=== PATIENT | male | born 2000 | race Caucasian/White ===

== ENCOUNTER 2021-08-16 04:28 | Emergency (ER) | payer BC, MEDICAID ==
[2021-08-16] MEDS ORDERED: Ketorolac 15 MG/ML SDV IM ONE (05:08)
[2021-08-16] MEDS ORDERED: Ondansetron 4 MG Tab.DIS PO ONE (05:09)
--- NOTE | 2021-08-16 05:11 | EDM.PDOC ---
ED HPI GENERAL MEDICAL PROBLEM - General Chief Complaint: ENT Problem Stated Complaint: SORE THROAT, RUNNY NOSE, FEVER Time Seen by Provider: 08/16/21 04:50 Source of Information: Reports: Patient History Limitations: Reports: No Limitations - History of Present Illness INITIAL COMMENTS - FREE TEXT/NARRATIVE: There is 20-year-old male with a medical history of of Fragile X syndrome presenting with a chief complaint of sore throat, cough, nausea. Duration of symptoms has been 1 week. Symptoms gradually worsening. Patient reports pain with swallowing and cough that is mildly productive. [id number]-[id number] pain medications seem to be only mildly effective. Patient did receive COVID-19 vaccination approximately 9 months ago. He has no known sick contacts. He denies any difficulty breathing, denies any chest pain, denies any shortness of breath. Treatments CIVIL CELEBRANT: Reports: NSAIDS Upper Throat Pain Score (Numeric/FACES): 7 - Related Data Allergies Allergy/AdvReac Type Severity Reaction Status Date / Time No Known Allergies Allergy Verified 08/16/21 04:53 Home Meds: Home Meds Sertraline [Zoloft] 100 mg PO DAILY 08/16/21 [History] guanFACINE 1 mg PO DAILY 08/16/21 [History] Past Medical History - Past Health History Medical/Surgical History: Denies Medical/Surgical History Social & Family History - Tobacco Use Tobacco Use Status *Q: Never Tobacco User Second Hand Smoke Exposure: No - Caffeine Use Caffeine Use: Reports: None - Recreational Drug Use Recreational Drug Use: No ED ROS ENT - Review of Systems Review Of Systems: See Below Free Text/Narrative/Comment: In addition to that documented in the HPI above, the additional ROS was obtained: Constitutional: Denies fevers or chills Eyes: Denies vision changes ENMT: Per HPI CV: Denies chest pain Resp: Denies SOB GI: Denies vomiting or diarrhea : Denies painful urination MSK: Denies recent trauma Skin: Denies new rashes Neuro: Denies new numbness or tingling or weakness Endocrine: Denies unexpected weight loss Heme: Denies bleeding disorders ED EXAM, ENT - Physical Exam Exam: See Below Text/Narrative:: I have reviewed the triage vital signs Const: Well nourished, well developed, appears stated age Eyes: Pupils Equal and reactive to light bilaterally, no conjunctival injection HENT: No signs of trauma or swelling, Neck supple without meningismus. Voice is normal. Uvula midline. No tonsillar swelling. CV: Regular Rate Rhythm, Warm, well-perfused extremities RESP: Unlabored respiratory effort GI: soft, non-tender, non-distended, no masses MSK: No gross deformities appreciated Skin: Warm, dry. No rashes Neuro: Alert, associate dentist II-XII grossly intact. Sensation and motor function of extremities grossly intact. Psych: Appropriate mood and affect. Course - Vital Signs Last Recorded V/S: Last Vital Signs Temp 37.5 C 08/16/21 04:45 Pulse 121 H 08/16/21 04:45 Resp 18 08/16/21 04:45 BP 134/74 08/16/21 04:45 Pulse Ox 98 08/16/21 04:45 - Orders/Labs/Meds Labs: Laboratory Tests 08/16/21 08/16/21 Range/Units 05:15 05:15 Influenza Type A RNA Negative (NEGATIVE) Influenza Type B RNA Negative (NEGATIVE) SARS-CoV-2 RNA (VILMA) Positive H (NEGATIVE) Group A Strep (PCR) Not detected (NOT DETECT) Meds: Medications Discontinued Medications Generic Name Dose Route Start Last Admin Trade Name Freq PRN Reason Stop Dose Admin Ketorolac Tromethamine 15 mg 08/16/21 05:08 08/16/21 05:24 Ketorolac 15 Mg/Ml Sdv IM 08/16/21 05:09 15 mg ONETIME ONE Administration Ondansetron HCl 4 mg 08/16/21 05:09 08/16/21 05:26 Ondansetron 4 Mg Tab.Dis PO 08/16/21 05:10 4 mg ONETIME ONE Administration Departure - Departure Time of Disposition: 06:13 Disposition: Home, Self-Care 01 Clinical Impression: COVID-19, Nausea - Discharge Information Instructions: COVID-19, Nausea, Adult, [id number] Referrals: PCP,None [Primary Care Provider] - Forms: ED Department Discharge Sepsis Event Note (ED) - Evaluation Sepsis Screening Result: No Definite Risk - Focused Exam Vital Signs: Vital Signs Temp Pulse Resp BP Pulse Ox 08/16/21 04:45 37.5 C 121 H 18 134/74 98 - Assessment/Plan Assessment:: Patient is a 20-year-old male presenting to the emergency room with a complaint of cough and sore throat. Patient was Covid positive in the emergency room. He is not demonstrating respiratory distress or hypoxia. No vomiting in the emergency room. Feels better after the administration of Zofran. Tachycardia noted on arrival but this seems likely secondary to fever and throat pain. Patient feels extremely warm during examination. At this point, patient is not a candidate for antibiotic infusion or hospitalization. He will be treated with Zofran as an outpatient. Return precautions discussed with mother. She agrees with this plan.
[2021-08-16 06:02] LABS: CORONAVIRUS COVID-19 NAA POSITIVE (NEGATIVE)
== END 2021-08-16 06:40 | disposition home or self-care (01) ==
LOC: JD.ED 04:28
DX: U07.1 COVID-19 (principal); R11.0 Nausea
CPT/HCPCS: 0240U; 87651; 96372; 99283; A9270; J1885